=== PATIENT | female | born 1990 | race Caucasian/White ===

== ENCOUNTER 2017-04-02 03:57 | Emergency (ER) | payer MEDICAID, OTHER ==
[2017-04-02 04:38] LABS: Urine Bilirubin Negative (NEGATIVE); Urine Blood Negative /ul (NEGATIVE); Urine Ketone Negative (NEGATIVE); Urine Nitrite Negative (NEGATIVE); Urine Protein Negative (NEGATIVE); Urine Specific Gravity >=1.030 SP.GR. (1.005-1.010); Urine Urobilinogen Normal (NORMAL)
--- NOTE | 2017-04-02 04:39 | ERNOTE ---
Abdominal HPI - General Chief Complaint: Abdominal Pain Time Seen by Provider: 04/02/17 04:27 Source: patient Exam Limitations: no limitations - Immun/Allergies/Home Medications Immunizatons: IMMUNIZATION HX Immunizations Up to Date Yes History of Influenza Vaccine No Hx Pneumococcal Vaccination No Allergies/Adverse Reactions: Allergies No Known Allergies Allergy (Verified 06/16/14 22:05) Home Medications: HOME MEDICATIONS NK [No Home Medication] 04/02/17 [Last Taken Unknown] - History of Present Illness Narrative: Pt has had abdominal pain for a month. Left upper quad/ flank radiating into the epigastrium Timing: getting worse Quality: moderate, severe, aching Associated Symptoms: Present: back pain, nausea Prior Abdominal Problems: Present: similar symptoms Review of Systems - Review of Systems Constitutional: Absent: recent illness, fever EYE: Present: no symptoms reported ENT: Present: no symptoms reported Respiratory: Present: no symptoms reported Cardiology: Present: no symptoms reported Gastrointestinal/Abdominal: Present: See HPI, constipation. Absent: vomiting Genitourinary: Present: no symptoms reported Musculoskeletal: Present: no symptoms reported Skin: Present: no symptoms reported Neurological: Present: no symptoms reported Endocrine: Present: no symptoms reported Hematologic/Lymphatic: Present: no symptoms reported Psych: Present: no symptoms reported - Patient's Past Medical History Patient History - Medical: Bipolar, Other Patient History - Cardiac/Respiratory: Asthma Patient History - Cancer: No Hx of Cancer Patient History - Surgical Procedures: T & A, Other Patient History - Other: None LMP (females 10-50): 1 month - Social History Living Situations: other Abuse History: No History of abuse Psych History: Psychiatric Hx, Hx of Bipolar Disorder Smoking Status: Current every day smoker Have you smoked in the past 12 months: Yes Alcohol Use: none Drug Use: none - Immunizations Immunizations Up to Date: Yes Hx Pneumococcal Vaccination: No History of Influenza Vaccine: No Physical Exam - Physical Exam General Appearance: Present: wd/wn, alert, no apparent distress Respiratory: Present: no respiratory distress, normal breath sounds Cardiovascular/Chest: Present: regular rate, rhythm, no murmur Gastrointestinal/Abdominal: Present: normal bowel sounds, soft, tenderness - minimal Back Exam: Present: normal inspection, normal range of motion, no CVA tenderness Extremity Exam: Present: normal inspection Neurological Exam: Present: alert, oriented, normal mood/affect Skin Exam: Present: normal color, warm/dry ED Progress - Results and Orders Patient's Lab Results:: I have reviewed the patient's lab results. Results and Orders: Laboratory Tests 04/02/17 04/02/17 04/02/17 04:24 04:24 05:00 WBC 7.3 Hgb 12.6 Hct 39.1 Plt Count 271 Sodium Potassium Chloride Carbon Dioxide Anion Gap BUN Creatinine Est GFR (Non-Af Amer) BUN/Creatinine Ratio Random Glucose Calcium Total Bilirubin AST ALT Alkaline Phosphatase Total Protein Albumin Amylase Lipase Urine Color Yellow Urine Appearance Slightly cloudy Urine pH 6.0 Ur Specific [place] >=1.030 Urine Protein Negative Urine Glucose (UA) Negative Urine Ketones Negative Urine Blood Negative Urine Nitrate Negative Urine Bilirubin Negative Urine Urobilinogen Normal Ur Leukocyte Esterase Negative Urine RBC None seen Urine WBC 0-5 Ur Epithelial Cells 10-25 H Urine Bacteria 2+ H Urine Mucus Moderate - 2+ H Urine Culture Comments No culture indicated Urine HCG, Qual Negative 04/02/17 05:00 WBC Hgb Hct Plt Count Sodium 143 H Potassium 3.8 Chloride 106 Carbon Dioxide 28.4 Anion Gap 12.4 BUN 6 Creatinine 0.66 Est GFR (Non-Af Amer) 117 BUN/Creatinine Ratio 9.1 Random Glucose 96 Calcium 9.1 Total Bilirubin 0.3 AST 15 ALT 18 L Alkaline Phosphatase 87 Total Protein 7.4 Albumin 3.8 Amylase 35 Lipase 156 Urine Color Urine Appearance Urine pH Ur Specific [place] Urine Protein Urine Glucose (UA) Urine Ketones Urine Blood Urine Nitrate Urine Bilirubin Urine Urobilinogen Ur Leukocyte Esterase Urine RBC Urine WBC Ur Epithelial Cells Urine Bacteria Urine Mucus Urine Culture Comments Urine HCG, Qual - Vital Signs Patient's Vital Signs:: I have reviewed the patient's vital signs. Vital Signs: Vital Signs 04/02/17 04:04 Temperature 36.8 C Pulse Rate 76 Respiratory 14 Rate Blood Pressure 129/78 O2 Sat by Pulse 99 Oximetry - X-Ray X-Ray #1 X-Ray: abdomen Interpretation: Interp. by me X-ray Comments: mild retained stool in the ascending colon, no obstruction or free air - Progress/Reassessment Chief Complaint: Abdominal Pain Departure - Departure Clinical Impression: Abdominal pain Qualifiers: Abdominal location: left upper quadrant Qualified Code(s): R10.12 - Left upper quadrant pain Disposition: Home self-care Condition: Good Instructions: Abdominal Pain, Adult, [id number] Additional Instructions: See your regular doctor for further outpatient work up. Referrals: Win To MD [Staff Physician] -
[2017-04-02 04:47] LABS: Urine Appearance Slightly Cloudy; Urine Bacteria 2+; Urine Color Yellow; Urine Mucus Moderate - 2+; Urine RBC None Seen /hpf (0-5); Urine WBC 0-5 /hpf (0-5)
[2017-04-02 05:03] LABS: Hematocrit 39.1 % (37.0-47.0); Hemoglobin 12.6 gm/dL (12.5-16.0); Mean Cell Volume 82.1 fl (78-100); Mean Corpuscular Hemoglobin 26.5 pg (27-31); Mean Corpuscular Hgb Conc 32.2 g/dl (32-36); Mean Platelet Volume 10.5 fl (6.0-9.5); Neutrophil # 3.3 K/mm3 (1.3-6.0); Neutrophil % 44.9 % (42-75.0); Platelet Count 271 K/mm3 (150-450); Red Blood Count 4.76 M/mm3 (4.2-5.4); Red Cell Distribution Width 14.7 % (11.5-14.0); White Blood Count 7.3 K/mm3 (4.0-10.5)
--- OUTSIDE RECORDS SUMMARY | 2017-04-02 05:10 | XMS REPORT | Continuity of Care Document ---
:1990 Demographics Address [address] [place] [address] Mobile Phone [phone] Phone [phone] Preferred Language Unknown Marital Status Non- Judaism Affiliation Episcopal Race White Ethnic Group Non- Author Organization [facility] ([facility]) Address [address] [place] [address] Phone [phone] Care Team Providers Name Role Phone [facility], [facility] Primary Care Provider [phone] Source Comments This disclosure is being made pursuant to the Care Everywhere program, applicable federal and state laws, and may not contain all informaitonavailable regarding this patient.[facility] ([facility]) Active Allergies and Adverse Reactions No Known Allergies Current Medications Prescription Sig. Disp. Refills Start Date End Date Status escitalopram (LEXAPRO) Take 20 mg by mouth Active 20 mg tablet daily. traZODone (DESYREL) Take 100 mg by mouth Active 100 mg tablet at bedtime. oxyCODONE-acetaminophe Take 1-2 Tabs by 80 Tab 0 01/22/2011 Active n (PERCOCET) 5-325 mg mouth every 4 hours per tablet as needed for Pain. Indications: Pain hydrOXYzine pamoate Take 1-2 Caps by 80 Cap 0 01/22/2011 Active (VISTARIL) 25 mg mouth 4 times daily capsule as needed for Other. Indications: Anxiety docusate (COLACE) 100 Take 1 Cap by mouth 2 60 Cap 1 01/22/2011 Active mg capsule times daily. Indications: Constipation Active Problems Problem Noted Date Undiagnosed cardiac murmurs 11/21/2004 Social History Tobacco Use Types Packs/Day Years Used Date Never Smoker Alcohol Use Drinks/Week oz/Week Comments No Last Filed Vital Signs Vital Sign Reading Time Taken Blood Pressure 108/63 01/22/2011 2:45 PM [employer] Pulse 101 01/22/2011 2:45 PM [employer] Temperature 36.3 C (97.3 F) 01/22/2011 2:20 PM [employer] Respiratory Rate 16 01/22/2011 2:45 PM [employer] Height 1.69 m (5' 6.53") 01/09/2011 9:44 AM [employer] Weight 123 kg (271 lb 2.7 oz) 01/22/2011 8:25 AM [employer] Body Mass Index 43.07 01/22/2011 8:25 AM [employer] Oxygen Saturation 98% 01/22/2011 2:45 PM [employer] Plan of Care Health Maintenance Due Date Last Done Comments Hepatitis B Vaccine (1 of 3 - Primary Series) 1992 HPV Vaccine (1 of 3 - Female/Unknown 3 Dose Series) 2003 Tdap Vaccine 2003 Cervical Cancer Screening 2010 Lipid Disorder Screening 2010 MMR Vaccine 2010 Td Vaccine 2010 Varicella Vaccine (1 of 2 - Adult - No Evidence of 2010 Immunity) Influenza Vaccine: Seasonal (#1) 07/02/2016 Results from Last 3 Months Not on file
[2017-04-02 05:17] LABS: Albumin * 3.8 gm/dl (3.4-5.0); BUN/Creatinine Ratio 9.1 (9.0-21.6); Bilirubin, Total 0.3 mg/dL (0.0-1.1); Ca. Corrected For Albumin 8.9 mg/dL (8.4-10.2); Calcium * 9.1 mg/dL (7.9-10.9); Carbon Dioxide 28.4 mmol/L (24-32.6); Potassium 3.8 mmol/L (3.4-4.6); Total Protein 7.4 gm/dL (6.2-8.2)
[2017-04-02 05:33] LABS: Anion Gap 12.4 mmol/L (6.8-13.8)
[2017-04-02 06:11] VITALS: BP 124/77
== END 2017-04-02 06:11 | disposition home or self-care (01) ==
LOC: ER 03:57
DX: R10.12 Left upper quadrant pain (principal); F17.210 Nicotine dependence, cigarettes, uncomplicated